=== PATIENT | male | born 1955 | race Caucasian/White ===

== ENCOUNTER 2021-09-04 19:44 | Inpatient (IN) | payer OTHER ==
--- NOTE | 2021-09-04 21:37 | RAD REPORT ---
EXAM DESCRIPTION: RAD - Chest Single View - 09/04/2021 9:30 pm CLINICAL HISTORY: DYSPNEA COMPARISON: No comparisons FINDINGS: Lines: None. Lungs: No evidence of edema or pneumonia. Pleural: No significant pleural effusions or pneumothorax. Cardiac: The heart size is within normal limits. Bones: No acute fractures. Sternotomy. Other: IMPRESSION: No acute cardiopulmonary disease.
[2021-09-04] MEDS ORDERED: NA CHLORIDE 0.9% 100 ML ONE (22:07)
[2021-09-04] MEDS ORDERED: CEFEPIME 1 GM/VIAL ONE (22:07)
[2021-09-04] MEDS ORDERED: VANCOMYCIN 1 GM/VIAL ONE (22:08)
[2021-09-04] MEDS ORDERED: NA CHLORIDE 0.9% 1,000 ML ONE (22:08)
--- NOTE | 2021-09-04 22:32 | ER ---
Nurse's Notes [facility] Name: Iglesia Billings Age: 66 yrs Sex: Male : 1955 Arrival Date: 09/04/2021 Time: 19:48 Bed Treatment Private MD: Diagnosis: Cellulitis of left lower limb;Sepsis, unspecified organism Presentation: 09/04 20:08 Chief complaint: Patient states: Pt states he started feeling chills this afternoon and wg starting to feel achy. Pt denies cough, SOB, N/V/D, CP, Abd Pain. Coronavirus screen: Vaccine status: Patient reports being unvaccinated. Client presents with at least one sign or symptom that may indicate coronavirus-19. Standard/surgical mask placed on the client. Provider contacted for isolation considerations. Ebola Screen: Patient negative for fever greater than or equal to 101.5 degrees Fahrenheit, and additional compatible Ebola Virus Disease symptoms Patient denies exposure to infectious person. Patient denies travel to an Ebola-affected area in the 21 days before illness onset. No symptoms or risks identified at this time. Initial Sepsis Screen: Does the patient meet any 2 criteria? No. Patient's initial sepsis screen is negative. Initial Sepsis Screen: Does the patient have a suspected source of infection? No. Patient's initial sepsis screen is negative. Risk Assessment: Do you want to hurt yourself or someone else? Patient reports no desire to harm self or others. Onset of symptoms was September 04, 2021 at 15:00. 20:08 Method Of Arrival: Ambulatory 20:08 Acuity: SIA 3 wg Triage Assessment: 20:11 General: Appears uncomfortable, well groomed, well developed, Behavior is cooperative, wg appropriate for age. Pain: Complains of pain in Generalize aches. Historical: - Allergies: 20:11 No Known Allergies; wg - PMHx: 20:11 CAD; Myocardial infarction; Hypertension; High Cholesterol; Diabetes - NIDDM; wg PERIPHERAL NEUROPATHY; Hypothyroidism; GERD; - Immunization history:: Adult Immunizations up to date. - Social history:: Smoking status: Patient denies any tobacco usage or history of. Vital Signs: 20:08 BP 142 / 64; Pulse 104; Resp 18; Temp 103.1; Pulse Ox 98% on R/A; Weight 54.43 kg; wg Height 6 ft. 0 in. (182.88 cm); Pain 2/10; 21:30 BP 112 / 78; Pulse 100; Resp 19; Temp 99; Pulse Ox 98% ; wr 09/05 00:00 BP 120 / 60; Pulse 94; Resp 12; Temp 100.2; Pulse Ox 98% ; wr 09/04 20:08 Body Mass Index 16.27 (54.43 kg, 182.88 cm) ED Course: 09/04 19:48 Patient arrived in ED. cf2 20:11 Triage completed. wg 20:11 Arm band placed on left wrist. wg 20:18 Zion Strange PA is PHCP. jr8 20:18 Blade Sears MD is Attending Physician. jr8 21:30 Chest Single View XRAY In Process Unspecified. EDMS 22:31 Ann Marie Harrell MD is Hospitalizing Provider. jr8 22:52 Blood Culture Adult (2) Sent. wr 22:52 Basic Metabolic Panel Sent. wr 23:59 Manual Differential Sent. wr Administered Medications: 20:45 Drug: NS 0.9% 1000 ml Route: IV; Rate: 1000 ml; Site: left antecubital; wr 22:50 Drug: Cefepime 1 grams Route: IVPB; Rate: 200 ml/hr; Infused Over: 30 mins; Site: left wr antecubital; 23:30 Drug: vancoMYCIN 1 grams Route: IVPB; Infused Over: 2 hrs; Site: left antecubital; wr 09/05 00:17 Drug: Tylenol 650 mg Route: PO; wr Outcome: 09/04 22:32 Decision to Hospitalize by Provider. jr8 09/05 01:08 Patient left the ED. wr Signatures: Dispatcher [employer] EDMS Zion Strange PA PA jr8 Wendie Valle cf2 Arie Tan RN wg Magnus Corona wr
--- NOTE | 2021-09-04 22:32 | EDPHYS ---
Physician Documentation [facility] Name: Iglesia Billings Age: 66 yrs Sex: Male : 1955 Arrival Date: 09/04/2021 Time: 19:48 Bed Treatment Private MD: ED Physician Blade Sears HPI: 09/04 21:25 This 66 yrs old Male presents to ER via Ambulatory with complaints of Doesn't jr8 Feel Right, chills. 21:25 The patient reports fever, that was measured at 103.1 degrees Fahrenheit. Onset: The jr8 symptoms/episode began/occurred acutely, today. Modifying factors: there are no obvious modifying factors. Associated signs and symptoms: Pertinent positives: chills, myalgias. Severity of symptoms: At their worst the symptoms were moderate in the emergency department the symptoms are unchanged. The patient has not experienced similar symptoms in the past. The patient has not recently seen a physician. Historical: - Allergies: 20:11 No Known Allergies; wg - PMHx: 20:11 CAD; Myocardial infarction; Hypertension; High Cholesterol; Diabetes - NIDDM; wg PERIPHERAL NEUROPATHY; Hypothyroidism; GERD; - Immunization history:: Adult Immunizations up to date. - Social history:: Smoking status: Patient denies any tobacco usage or history of. ROS: 21:25 Eyes: Negative for injury, pain, redness, and discharge, ENT: Negative for injury, jr8 pain, and discharge, Neck: Negative for injury, pain, and swelling, Cardiovascular: Negative for chest pain, palpitations, and edema, Respiratory: Negative for shortness of breath, cough, wheezing, and pleuritic chest pain, Abdomen/GI: Negative for abdominal pain, nausea, vomiting, diarrhea, and constipation, Back: Negative for injury and pain, Neuro: Negative for headache, weakness, numbness, tingling, and seizure. 21:25 Constitutional: Positive for body aches, chills, fatigue, fever. 21:25 Skin: Positive for erythema, of the left leg. Exam: 21:25 Constitutional: This is a well developed, well nourished patient who is awake, alert, jr8 and in no acute distress. Cardiovascular: Tachycardic with a normal S1 and S2. No gallops, murmurs, or rubs. Normal PMI, no JVD. No pulse deficits. Respiratory: Lungs have equal breath sounds bilaterally, clear to auscultation and percussion. No rales, rhonchi or wheezes noted. No increased work of breathing, no retractions or nasal flaring. Abdomen/GI: Soft, non-tender, with normal bowel sounds. No distension or tympany. No guarding or rebound. No evidence of tenderness throughout. Back: No spinal tenderness. No costovertebral tenderness. Full range of motion. MS/ Extremity: Pulses equal, no cyanosis. Neurovascular intact. Full, normal range of motion. Neuro: Awake and alert, GCS 15, oriented to person, place, time, and situation. Cranial nerves II-XII grossly intact. Motor strength 5/5 in all extremities. Sensory grossly intact. 21:25 Skin: Patient has a approximately 5 mm open wound to the forefoot of the left foot. No discharge or erythema surrounds. Dorsum of the foot to proximal tibia has increased swelling compared to the right leg. Patient has erythema that is patchy in nature to the left lower leg. Temperature markedly increased on the left side compared to the right. Vital Signs: 20:08 BP 142 / 64; Pulse 104; Resp 18; Temp 103.1; Pulse Ox 98% on R/A; Weight 54.43 kg; wg Height 6 ft. 0 in. (182.88 cm); Pain 2/10; 21:30 BP 112 / 78; Pulse 100; Resp 19; Temp 99; Pulse Ox 98% ; wr 09/05 00:00 BP 120 / 60; Pulse 94; Resp 12; Temp 100.2; Pulse Ox 98% ; wr 09/04 20:08 Body Mass Index 16.27 (54.43 kg, 182.88 cm) wg MDM: 09/04 20:18 Patient medically screened. [facility] 21:25 Data reviewed: vital signs, nurses notes, lab test result(s), EKG, radiologic studies, jr8 plain films. Data interpreted: Pulse oximetry: on room air is 98 %. Interpretation: normal. Counseling: I had a detailed discussion with the patient and/or guardian regarding: the historical points, exam findings, and any diagnostic results supporting the discharge/admit diagnosis, lab results, radiology results, the need for further work-up and treatment in the hospital. 09/04 20:33 Order name: Basic Metabolic Panel jr8 10/04 20:33 Order name: Blood Culture Adult (2) [facility] 09/04 20:33 Order name: CBC with Diff [facility] 09/04 20:33 Order name: CPK [facility] 09/04 20:33 Order name: LFT's [facility] 09/04 20:33 Order name: Lactate [facility] 09/04 20:33 Order name: Lipase [facility] 09/04 20:33 Order name: Procalcitonin [facility] 09/04 20:33 Order name: Protime (+inr) [facility] 09/04 20:33 Order name: Ptt, Activated [facility] 09/04 20:33 Order name: Sed Rate [facility] 09/04 20:33 Order name: Troponin (emerg Dept Use Only) [facility] 09/04 20:33 Order name: Urine Microscopic Only [facility] 09/04 20:33 Order name: Chest Single View XRAY; Complete Time: 22:08 [facility] 09/04 20:33 Order name: Accucheck; Complete Time: 00:47 [facility] 09/04 20:33 Order name: Cardiac monitoring; Complete Time: 22:52 [facility] 09/04 20:33 Order name: EKG - Nurse/Tech; Complete Time: 00:47 [facility] 09/04 20:33 Order name: IV Saline Lock - Large Bore; Complete Time: 22:25 [facility] 09/04 20:33 Order name: Labs collected and sent; Complete Time: 22:52 [facility] 09/04 20:33 Order name: O2 Per Protocol; Complete Time: 22:25 [facility] 09/04 20:33 Order name: Basic Metabolic Panel [facility] 09/04 20:33 Order name: Blood Culture [facility] 09/04 22:06 Order name: SARS-COV-2 RT PCR; Complete Time: 22:08 [facility] 09/04 23:24 Order name: Manual Differential [facility] 09/04 23:54 Order name: CONS Physician Consult [facility] 09/04 20:33 Order name: O2 Sat Monitoring; Complete Time: 22:25 [facility] 09/04 20:33 Order name: Urine Dipstick-Ancillary (obtain specimen) [facility] Administered Medications: 20:45 Drug: NS 0.9% 1000 ml Route: IV; Rate: 1000 ml; Site: left antecubital; wr 22:50 Drug: Cefepime 1 grams Route: IVPB; Rate: 200 ml/hr; Infused Over: 30 mins; Site: left wr antecubital; 23:30 Drug: vancoMYCIN 1 grams Route: IVPB; Infused Over: 2 hrs; Site: left antecubital; wr 09/05 00:17 Drug: Tylenol 650 mg Route: PO; wr Disposition: 06:52 Co-signature as Attending Physician, Blade Sears MD I agree with the assessment and geovanni plan of care. Disposition Summary: 09/04/21 22:32 Hospitalization Ordered Hospitalization Status: Inpatient Admission jr Provider: Ann Marie Harrell jr Location: Telemetry/MedSur (Inpatient) jr8 Condition: Stable jr8 Problem: new jr8 Symptoms: are unchanged jr8 Bed/Room Type: Standard [facility] Room Assignment: 429(09/05/21 00:14) tl1 Diagnosis - Cellulitis of left lower limb jr8 - Sepsis, unspecified organism jr8 Forms: - Medication Reconciliation Form jr8 - SBAR form jr8 Signatures: Dispatcher [employer] EDBlade Cheng MD MD cha Roszak, Josh, PA PA jr8 Carey Aaron RN RN tl1 Arie Tan RN wg Robinson, Willena Corrections: (The following items were deleted from the chart) 09/04 21:06 20:17 CORONAVIRUS+MR.LAB.BRZ ordered. [facility] 09/05 00:14 09/04 22:32 jr8 tl1
[2021-09-04 22:58] LABS: Protime INR 1.19
[2021-09-04 23:00] LABS: Absolute Lymphocytes (CBC) 0.9 K/uL (0.7-4.9); Basophils % 0.2 % (0-1.3); Hematocrit 34.6 % (39.6-49.0); Lymphocytes % 3.8 % (15.3-44.8); MPV 8.6 fL (7.6-11.3); RBC Red Blood Cell Count 3.99 M/uL (4.33-5.43)
[2021-09-04 23:16] LABS: ALT/SGPT 19 U/L (12-78); Albumin 3.6 g/dL (3.4-5.0); Alkaline Phosphatase 84 U/L (45-117); BUN Blood Urea Nitrogen 15 mg/dL (7-18); Bicarbonate 27 mmol/L (21-32); Bilirubin Direct 0.1 mg/dL (0-0.2); Bilirubin Total 0.5 mg/dL (0.2-1.0); Creatine Phosphokinase 116 U/L (39-308); Glucose Level 129 mg/dL (74-106); Lipase 153 U/L (73-393); Protein, Total 8.1 g/dL (6.4-8.2); Sodium Level 137 mmol/L (136-145); Troponin (Emerg Dept Use Only) < 0.02 ng/mL (0.0-0.045)
[2021-09-04 23:17] LABS: AST/SGOT 19 U/L (15-37)
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
[2021-09-05] MEDS ORDERED: ACETAMINOPHEN 325 MG TABLET ONE (00:33)
[2021-09-05] MEDS ORDERED: ONDANSETRON 4 MG/2 ML VIAL IV PRN (00:52)
[2021-09-05 00:55] LABS: Blood Morphology Comment NOT SEEN (NOT SEEN); Platelet Estimate ADEQ
[2021-09-05] MEDS: NA CHLORIDE 0.9% 1,000 ML IV SCH ×3 (02:46→14:31)
[2021-09-05] MEDS: HEPARIN 5000 UNIT/ML 1 ML VIAL SQ SCH ×3 (03:10→17:08)
[2021-09-05] MEDS ORDERED: VANCOMYCIN 0.75 GM in NA CHLORIDE 0.9% 150 ML IVPB ONE (04:00)
[2021-09-05] MEDS ORDERED: VANCOMYCIN 1 GM/VIAL ONE (04:09)
[2021-09-05] MEDS ORDERED: NA CHLORIDE 0.9% 250 ML ONE (04:44)
[2021-09-05 05:00] LABS: Absolute Lymphocytes (CBC) 1.4 K/uL (0.7-4.9); Basophils % 0.4 % (0-1.3); Hematocrit 31.1 % (39.6-49.0); Lymphocytes % 6.2 % (15.3-44.8); MPV 7.9 fL (7.6-11.3); RBC Red Blood Cell Count 3.57 M/uL (4.33-5.43)
[2021-09-05 05:49] LABS: ALT/SGPT 16 U/L (12-78); AST/SGOT 12 U/L (15-37); Alkaline Phosphatase 63 U/L (45-117); BUN Blood Urea Nitrogen 17 mg/dL (7-18); Bicarbonate 27 mmol/L (21-32); Bilirubin Total 0.6 mg/dL (0.2-1.0); Ferritin 188.2 ng/mL (26-388); Folic Acid, (Folate) > 20.0 ng/mL (3.1-17.5); Glucose Level 105 mg/dL (74-106); HDL Cholesterol 29 mg/dL (40-60); LDL Cholesterol, Calculated 40 (<130); Magnesium 1.6 mg/dL (1.8-2.4); NT PRO-BNP 3010 pg/mL (<125); Phosphorus 2.6 mg/dL (2.5-4.9); Potassium 4.8 mmol/L (3.5-5.1); Protein, Total 6.6 g/dL (6.4-8.2); Sodium Level 141 mmol/L (136-145); Thyroid Stimulating Hormone 0.883 uIU/mL (0.360-3.740); Transferrin 156 mg/dL (200-360)
[2021-09-05] MEDS ORDERED: MAGNESIUM SULFATE 1 gm IVPB 1 GM/100 ML BAG IV ONE (06:15)
[2021-09-05] MEDS: INSULIN -REGULAR HUMAN 50 UNIT/0.5 ML ML SQ SCH ×4 (07:30→20:19)
[2021-09-05] MEDS ORDERED: CYANOCOBALAMIN 1000MCG/ML INJ IM ONE (09:59)
--- NOTE | 2021-09-05 10:33 | P.PN ---
Subjective Date of Service: 09/05/21 Subjective: No new changes, No C/O voiced Subjective Patient clinically doing better. Otherwise, no new complaints. Ambulating out of bed. Will get physical therapy. Review of Systems 10-point ROS is otherwise unremarkable Physical Examination - Vital Signs Reviewed - Physical Exam General: Alert, In no apparent distress Respiratory: Clear to auscultation bilaterally, Normal air movement Cardiovascular: Regular rate/rhythm, Normal S1 S2 Gastrointestinal: Normal bowel sounds, No tenderness Neurological: Normal speech, Normal tone, Normal affect Assessment & Plan - Problems (Diagnosis) (1) (HFpEF) heart failure with preserved ejection fraction Current Visit: Yes Status: Acute (2) Pulmonary fibrosis Current Visit: Yes Status: Acute - Plan Continue with plan of care as mentioned below: 1. Continue with IV antibiotics 2. Awaiting sputum and blood culture 3. Repeat chest x-ray 4. Will proceed with CT scan of the chest 5. Appreciate pulmonary consultation 6. Continue with nebs as needed 7. O2 per protocol 8. Continue with gentle hydration 9. Repeat labs including CBC and renal function in a.m. 10. GI and DVT prophylaxis Discharge Plan: Home Plan to discharge in: Greater than 2 days - Advance Directives Does patient have a Living Will: Yes Does patient have a Durable POA for Healthcare: No Physical Examination - Vital Signs Temperature: 98.8 F Blood Pressure: 115/56 Pulse: 88 Respirations: 20 Pulse Ox (%): 96 - Studies Laboratory Data (last 24 hrs) 09/04/21 22:35: PT 13.7 H, INR 1.19, APTT 29.7 09/04/21 22:35: WBC 23.50 H*, Hgb 11.9 L, Hct 34.6 L, Plt Count 257 09/04/21 22:35: Sodium 137, Potassium 4.0, BUN 15, Creatinine 1.80 H, Glucose 129 H, Total Bilirubin 0.5, AST 19, ALT 19, Alkaline Phosphatase 84, Lipase 153 Assessment & Plan - Advance Directives Does patient have a Living Will: No Does patient have a Durable POA for Healthcare: No
[2021-09-05] MEDS: SOD FERRIC GLUC COMPLX/SUCROSE 250 MG in NA CHLORIDE 0.9% 250 ML IV SCH (10:56)
[2021-09-05] MEDS ORDERED: Pharmacy Consult 1 EA XX PRN (12:00)
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
--- NOTE | 2021-09-05 14:23 | RAD REPORT ---
EXAM DESCRIPTION: CT - Foot Left Alberto Steward - 09/05/2021 2:02 pm CLINICAL HISTORY: r/u osteo, puncture wound of the foot COMPARISON: No comparisons TECHNIQUE: Axial to the foot 2 millimeter thick images were obtained without contrast. Sagittal and coronal reformatted images were created and reviewed. All CT scans are performed using dose optimization technique as appropriate and may include automate d exposure control or mA/KV adjustment according to patient size. FINDINGS: Open soft tissue wound is present in the plantar surface of the foot near the second MTP j oint. This is superficial at the skin surface 8 mm in diameter. Edema is seen in the plantar soft tis sues. No air is seen in the soft tissues distant from the open wound. No foreign body is identified. There is no bone destruction present to indicate meri osteomyelitis. No cortical thinning or trabecu lar disruption. Early osteomyelitis can be present prior to bone destruction. No fracture changes. No acute bone or joint finding. Patient has degenerative change at the first MTP joint and the IP joint of the first toe. Very minimal plantar spur is present. IMPRESSION: No bone destruction present to indicate meri osteomyelitis. No cortical thinning or tra becular disruption. Early osteomyelitis can be present prior to CT or plain film bone destruction and therefore cannot be entirely excluded. Approximately 8 mm diameter open wound superficial soft tissues plantar surface of the foot at the le kriss of the second MTP joint. No associated foreign body and no abnormal air within the soft tissues. Soft tissue edema is present in the region of the open wound with no drainable fluid collection ident ifiable.
--- NOTE | 2021-09-05 15:34 | RAD REPORT ---
EXAM DESCRIPTION: US - Extrem Venous W Compress Levi - 09/05/2021 4:20 am CLINICAL HISTORY: Swelling TECHNIQUE: Real-time duplex ultrasound scan of the bilateral lower extremity veins integrating B-mod e two-dimensional vascular structure, Doppler spectral analysis, color flow Doppler imaging and compr ession. COMPARISON: No relevant prior studies available. FINDINGS: Right deep veins: Unremarkable. No DVT in the right common femoral, femoral, proximal deep femoral or popliteal veins. The veins demonstrate normal color flow, are normally compressible , with normal phasic flow and/or augmentation response. Right superficial veins: Unremarkable. No thrombus in the visualized right great saphenous vein. Left deep veins: Unremarkable. No DVT in the left common femoral, femoral, proximal deep femoral or popliteal veins. The veins demonstrate normal color flow, are normally compressible, with normal phasic flow and/or augmentation response. Left superficial veins: Unremarkable. No thrombus in the visualized left great saphenous vein. Soft tissues: No acute findings. No popliteal cyst. IMPRESSION: No evidence for deep venous thrombosis within the bilateral lower extremity. Electronically signed by: Yue Quezada MD 09/05/2021 3:27 AM CDT Due to temporary technical issues with the PACS/Fluency reporting system, reports are being signed by the in house radiologists without review as a courtesy to insure prompt reporting. The interpreting radiologist is fully responsible for the content of the report.
[2021-09-05] MEDS ORDERED: INFLUENZA VACCINE (for 6+ mo) 0.5 ML DOSE IMVAC ONE (16:00)
--- NOTE | 2021-09-05 18:08 | EKG ---
Test Date: 2021-09-04 Test Time: 22:36:38 Skatesman: CARLEE MEASUREMENT RESULTS: Intervals: Rate: 90 KS: 160 QRSD: 78 QT: 332 QTc: 406 [place]: P: 23 KS: 160 QRS: 88 T: -1 INTERPRETIVE STATEMENTS: Sinus rhythm with premature supraventricular complexes Nonspecific ST and T wave abnormality Abnormal ECG No previous ECG available for comparison Electronically Signed On 09-05-21 18:05:47 CDT by Uche Gilmore
[2021-09-05] MEDS: ACETAMINOPHEN 500 MG TAB PO PRN (20:04)
[2021-09-05] MEDS ORDERED: CEFEPIME 2 GM in NA CHLORIDE 0.9% 100 ML IV SCH (21:00)
[2021-09-06] MEDS ORDERED: CEFEPIME 2 GM VIAL IV SCH
[2021-09-06 00:11] VITALS: BMI 29.8
[2021-09-06] MEDS: HEPARIN 5000 UNIT/ML 1 ML VIAL SQ SCH ×2 (01:10→07:37)
[2021-09-06] MEDS ORDERED: VANCOMYCIN 1.75 GM in NA CHLORIDE 0.9% 500 ML IVPB SCH (04:00)
[2021-09-06] MEDS ORDERED: NA CHLORIDE 0.9% IVPB SCH (04:00)
[2021-09-06] MEDS ORDERED: VANCOMYCIN IVPB SCH (04:00)
[2021-09-06] MEDS: NA CHLORIDE 0.9% 1,000 ML IV SCH (06:06)
[2021-09-06 07:02] LABS: Magnesium 2.3 mg/dL (1.8-2.4); Potassium 4.7 mmol/L (3.5-5.1)
[2021-09-06] MEDS: INSULIN -REGULAR HUMAN 50 UNIT/0.5 ML ML SQ SCH ×2 (07:30→11:30)
[2021-09-06] MEDS: ACETAMINOPHEN 500 MG TAB PO PRN (08:07)
[2021-09-06] MEDS ORDERED: SOD FERRIC GLUC COMPLX/SUCROSE 250 MG in NA CHLORIDE 0.9% 250 ML IV SCH (09:00)
[2021-09-06] MEDS: SOD FERRIC GLUC COMPLX/SUCROSE 250 MG in NA CHLORIDE 0.9% 250 ML IV SCH (09:32)
[2021-09-06 09:59] VITALS: O2SAT 92
--- NOTE | 2021-09-06 12:57 | P.PN ---
Subjective Date of Service: 09/06/21 Primary Care Provider: Deisy Chief Complaint: cellulitis Patient seen examined at bedside, upset that wound care was applied. Spoke with current nurse, wound care will be applied JUAN FRANCISCO. Review of Systems 10-point ROS is otherwise unremarkable Physical Examination - Vital Signs Temperature: 99 F Blood Pressure: 150/72 Pulse: 80 Respirations: 20 Pulse Ox (%): 96 Assessment And Plan - Plan Physical Exam: General: Alert, In no apparent distress, Obese HEENT: Atraumatic, Normocephalic Neck: Supple, 2+ carotid pulse no bruit Respiratory: Clear to auscultation bilaterally, Normal air movement Cardiovascular: No edema, Normal pulses Gastrointestinal: Normal bowel sounds, Hypoactive Musculoskeletal: Other (Left lower extremity erythema with diabetic foot ulcer to ball of plantar aspect of left foot. Wound is approximately 0.5 x 0.5 cm. Martita wound tissue erythematous and swollen.) Conclusions/Impression: Antibiotics: Vancomycin Start: 09/05 Stop:-- Cefepime Start: 09/05 Stop:-- Assessment/plan Sepsis secondary to infected left diabetic foot ulcer Patient with septic presentation without severe sepsis. Started on broad- spectrum IV antibiotics including vancomycin and cefepime. Left diabetic foot ulcer shows signs of local infection. CT showed no bone destruction present to indicate drink osteomyelitis. Findings included an 8 mm diameter open wound superficial soft tissue plantar surface at the level of the 2nd MTP joint. Current wound care includes: Clean with sterile saline, apply Medihoney, wrapped with Kerlix. Wound culture: G stain shows no organisms, culture pe nding. Blood cultures show no growth to date. Left lower extremity cellulitis Continue current antibiotics. Keep leg elevated. Leukocytosis with left shift Continue to monitor WBC trend. WBC down trending. Diabetes Controlled, hemoglobin A1c is 5.7%. Continue SSI CAMILO, anemia, protein caloric malnutrition, obesity Medical management per primary team Continue monitor CBC and BMP Continue to monitor for signs of infection Plan of care discussed with Dr. Godwin Thank you for consultation
[2021-09-06] MEDS ORDERED: METOPROLOL XL 50 MG TAB PO ONE (14:00)
[2021-09-06 14:58] LABS: Absolute Lymphocytes (CBC) 0.7 K/uL (0.7-4.9); Basophils % 0.4 % (0-1.3); Hematocrit 31.5 % (39.6-49.0); Lymphocytes % 6.7 % (15.3-44.8); MPV 8.1 fL (7.6-11.3); RBC Red Blood Cell Count 3.57 M/uL (4.33-5.43)
[2021-09-06 15:38] LABS: Blood Morphology Comment NOT SEEN (NOT SEEN); Platelet Estimate ADEQ; White Blood Cell Scan OK (OK)
[2021-09-06] MEDS ORDERED: glipiZIDE 5 MG TAB PO SCH (17:00)
[2021-09-06] MEDS ORDERED: ATORVASTATIN 40 MG TAB PO SCH (21:00)
[2021-09-07] MEDS ORDERED: LEVOTHYROXINE SOD 0.05 MG TABLET PO SCH (06:00)
[2021-09-07] MEDS ORDERED: TORSEMIDE 20 MG TAB PO SCH (09:00)
[2021-09-07] MEDS ORDERED: ZINC SULFATE 220 MG CAP PO SCH (09:00)
[2021-09-07] MEDS ORDERED: MEDIHONEY 44 ML TOPICAL TUBE TOP SCH (09:00)
[2021-09-07] MEDS ORDERED: METOPROLOL XL 50 MG TAB PO SCH (09:00)
[2021-09-07] MEDS ORDERED: LOSARTAN POTASSIUM 50 MG TABLET PO SCH (09:00)
[2021-09-07] MEDS ORDERED: VITAMIN D 1000 UNIT TAB PO SCH (09:00)
[2021-09-07] MEDS ORDERED: MULTIVIT W/ MINERAL TAB PO SCH (09:00)
[2021-09-07] MEDS ORDERED: ASPIRIN EC 81 MG TAB PO SCH (09:00)
[2021-09-08] MEDS ORDERED: METFORMIN ER 500 MG TAB PO SCH ×2 (08:00→17:00)
[2021-09-18 04:32] VITALS: BP 115/56; TEMP 98.8
--- NOTE | 2021-09-18 04:35 | P.DS ---
Discharge Date: 09/06/21 Primary Care Provider: Deisy Disposition: ROUTINE DISCHARGE Discharge Condition: GOOD Reason for Admission: cellulitis Consultations: Infectious disease Brief History of Present Illness: Mr. Billings is a 66 yo M with DM, HTN, HLD, hypothyroidism who presents with one day of headache, malaise, dizziness and chills. He has a diabetic foot ulcer on the ball of his left foot. He reports this has been present for 3 months and has been improving. He has not seen a doctor or wound care for the ulcer before. He cleans it daily with water and alcohol. He has significant numbness in the sole of his left foot. Left calf is warm, erythematous and edematous when compared to the right. ROM intact bilaterally. Upon arrival to the ED, he has a T103 and HR 102bpm. WBC 23.5. Cr 1.8, GFR 38. Procal 0.84. Received fluids, vancomycin and cefepime in the ED. Hospital Course: Patient was started on antibiotic therapy. Patient was also given steroids and nap treatments. Patient is clinically doing better. At this time, patient is doing well enough to be discharged home with outpatient follow up. Vital Signs/Physical Exam: Temp Pulse Resp BP Pulse Ox 98.8 F 88 20 115/56 L 96 09/18/21 04:32 09/18/21 04:32 09/18/21 04:32 09/18/21 04:32 09/18/21 04:32 General: Alert, In no apparent distress, Oriented x3 Laboratory Data at Discharge: WBC 10.80 K/uL (4.3-10.9) D 09/06/21 14:45 Hgb 10.6 g/dL (13.6-17.9) L 09/06/21 14:45 Hct 31.5 % (39.6-49.0) L 09/06/21 14:45 Plt Count 167 K/uL (152-406) D 09/06/21 14:45 PT 13.7 SECONDS (9.5-12.5) H 09/04/21 22:35 INR 1.19 09/04/21 22:35 APTT 29.7 SECONDS (24.3-36.9) 09/04/21 22:35 Sodium 141 mmol/L (136-145) 09/06/21 14:45 Potassium 4.0 mmol/L (3.5-5.1) 09/06/21 14:45 BUN 16 mg/dL (7-18) 09/06/21 14:45 Creatinine 1.60 mg/dL (0.55-1.3) H 09/06/21 14:45 Glucose 127 mg/dL (74-106) H 09/06/21 14:45 Phosphorus 2.6 mg/dL (2.5-4.9) 09/05/21 04:47 Magnesium 2.3 mg/dL (1.8-2.4) D 09/06/21 06:05 Total Bilirubin 0.6 mg/dL (0.2-1.0) 09/05/21 04:47 AST 12 U/L (15-37) L 09/05/21 04:47 ALT 16 U/L (12-78) 09/05/21 04:47 Alkaline Phosphatase 63 U/L (45-117) 09/05/21 04:47 Triglycerides 87 mg/dL (<150) 09/05/21 04:47 Cholesterol 86 mg/dL (<200) 09/05/21 04:47 HDL Cholesterol 29 mg/dL (40-60) L 09/05/21 04:47 Cholesterol/HDL Ratio 2.97 09/05/21 04:47 Lipase 153 U/L (73-393) 09/04/21 22:35 Home Medications: Ascorbic Acid [Vitamin C] 1 tab PO DAILY 09/05/21 Aspirin [Adult Aspirin Regimen] 81 mg PO DAILY 09/05/21 Atorvastatin Calcium 40 mg PO BEDTIME 09/05/21 Cholecalciferol (Vitamin D3) [Vitamin D3] 1 tab PO DAILY 09/05/21 Levothyroxine [Synthroid*] 50 mcg PO [id number] 09/05/21 Losartan Potassium 25 mg PO DAILY 09/05/21 Metformin ER [Glucophage ER*] 1,000 mg PO BREAKFAST 09/05/21 Metformin ER [Glucophage ER*] 500 mg PO DAILY AT SUPPER 09/05/21 Metoprolol Succinate [Toprol Xl*] 50 mg PO DAILY 09/05/21 Multivit-Min/FA/Lycopen/Lutein [Centrum Silver Tablet] 1 tab PO DAILY 09/05/21 Torsemide [Demadex*] 40 mg PO DAILY 09/05/21 Zinc Gluconate [Zinc] 1 tab PO DAILY 09/05/21 glipiZIDE [Glipizide] 10 mg PO BIDWM 09/05/21 Medihoney [Medihoney Woundcare Gel*] 1 appl TOP DAILY tube 09/06/21 Sulfamethoxazole/Trimethoprim [Bactrim Ds Tablet] 1 each PO BID #20 tablet 09/06/21 levoFLOXacin [Levaquin] 500 mg PO DAILY #7 tab 09/06/21 New Medications: Sulfamethoxazole/Trimethoprim [Bactrim Ds Tablet] 1 each PO BID #20 tablet levoFLOXacin [Levaquin] 500 mg PO DAILY #7 tab Physician Discharge Instructions: OK TO DC IV AND DC HOME with home health FOLLOW-UP WITH PRIMARY CARE PROVIDER IN 1-2 WEEKS FOLLOW-UP WITH Surgery or wound healing IN 1-2 WEEKS RETURN TO THE ER IF symptoms return CALL or TEXT DR. BRUNO AT [phone] IF ANY QUESTIONS REGARDING HOSPITAL STAY. PLEASE CALL THE FLOOR AT [phone] IF ANY MEDICATION OR NURSING QUESTIONS. Diet: AHA Activity: Fall precautions Followup: CHRISTOPHE SAEED [Primary Care Provider] - Time spent managing pt's care (in minutes): 35
== END 2021-09-06 17:45 | disposition home or self-care (01) | DRG 871 ==
LOC: ER 19:44 → ERHOLD 09-05 00:01 → 4TH 09-05 00:49
PROVIDERS: ADMIT Hospitalist; ATTEND Hospitalist
DX: A41.9 Sepsis, unspecified organism (principal); I50.31 Acute diastolic (congestive) heart failure; L03.116 Cellulitis of left lower limb; N17.9 Acute kidney failure, unspecified; E46 Unspecified protein-calorie malnutrition; E11.621 Type 2 diabetes mellitus with foot ulcer; E78.5 Hyperlipidemia, unspecified; E03.9 Hypothyroidism, unspecified; E66.9 Obesity, unspecified; Z68.29 Body mass index [BMI] 29.0-29.9, adult; D64.9 Anemia, unspecified; I11.0 Hypertensive heart disease with heart failure; J84.10 Pulmonary fibrosis, unspecified; Z95.1 Presence of aortocoronary bypass graft; Z20.822 Contact with and (suspected) exposure to COVID-19
CPT/HCPCS: 36415; 71045; 73700; 80048; 80053; 80061; 80076; 82550; 82607; 82728; 82746; 82947; 83036; 83540; 83605; 83690; 83735; 83880; 84100; 84145; 84439; 84443; 84466; 84484; 85025; 85610; 85652; 85730; 87040; 87070; 87077; 87186; 87205; 93005; 93970; 94760; 96374; 96375; 99283; J0692; J1644; J2916; J3370; J3420; J3475; J7030; J7040; J7050; U0003